=== PATIENT | female | born 1980 | race Caucasian/White ===

== ENCOUNTER → 2020-05-03 13:35 | Outpatient (CLI) | payer OTHER, SELFPAY ==
--- NOTE | ~2020-05-03 | XR_ITS ---
EXAMINATION: XR hip LT min 2V DATE: 05/03/2020 13:57 INDICATION: Left hip pain. TECHNIQUE: 2 views of left hip were obtained. COMPARISON: None. FINDINGS: Bone alignment is normal. No fracture. Left hip joint space is normal. IMPRESSION: 1. Normal left hip. Reviewed, dictated and finalized at location A. ER IMPRESSION: 1. Normal left hip.
== END ==
DX: M25.552 Pain in left hip (principal)
CPT/HCPCS: 73502